=== PATIENT | male | born 1975 | race Caucasian/White ===

== ENCOUNTER 2018-11-17 17:01 | Emergency (ER) | payer MEDICAID, OTHER ==
[~2018-11-17] VITALS: Wt 82.1 kg
[2018-11-17] MEDS ORDERED: LORAZEPAM 2 MG INJ IV ONE (22:00)
[2018-11-18] MEDS ORDERED: OMEP20CA16 PO (00:07)
--- NOTE | 2018-11-18 01:04 | ERD ---
ER Documentation Chief Complaint Chief Complaint DIZZINESS, PALPITATION X YESTERDAY, L ARM NUMBNESS SINCE 1400 HPI This is a 42-year-old male complains of dizziness and palpitations since yesterday along with bilateral arm numbness and perioral numbness. Denies fevers chills nausea vomiting. He denies any chest pressure but does feel palpitations. He says been under somewhat stressful situations lately secondary to monetary issues. Denies fevers chills nausea vomiting. Denies history of cardiac disease. Denies current family history of cardiac disease. Denies any other current issues. ROS All systems reviewed and are negative except as per history of present illness. Medications Home Meds Reported Medications Omeprazole* (Omeprazole*) 20 Mg Capsule.dr, 20 MG PO DAILY, #30 CAP 11/18/18 Allergies Allergies: Coded Allergies: Penicillins (Unverified Allergy, Severe, RASHES, 11/18/18) PMhx/Soc Medical and Surgical Hx: pt denies Medical Hx, pt denies Surgical Hx Hx Alcohol Use: No Hx Substance Use: No Hx Tobacco Use: No Smoking Status: Never smoker Physical Exam Vitals Vital Signs Date Temp Pulse Resp B/P (MAP) Pulse Ox O2 O2 Flow FiO2 Time Delivery Rate 11/18/18 98.7 61 18 117/80 96 Room Air 00:45 (92) 11/18/18 98.7 63 18 120/77 96 Room Air 00:08 (91) 11/17/18 98.7 60 18 120/74 100 Room Air 23:01 (89) 11/17/18 98.7 58 18 125/72 100 Room Air 22:11 (89) 11/17/18 98.7 75 20 123/73 99 20:50 (90) 11/17/18 98.7 93 20 123/73 99 17:37 (90) Physical Exam Const: No acute distress Head: Atraumatic Eyes: Normal Conjunctiva ENT: Normal External Ears, Nose and Mouth. Neck: Full range of motion. No meningismus. Resp: Clear to auscultation bilaterally Cardio: Regular rate and rhythm, no murmurs Abd: Soft, non tender, non distended. Normal bowel sounds Skin: No petechiae or rashes Back: No midline or flank tenderness Ext: No cyanosis, or edema Neur: Awake and alert Psych: Normal Mood and Affect Result Diagram: 11/17/18209911/17/182099 Results 24 hrs Laboratory Tests Test 11/17/18 21:00 White Blood Count 11.0 10^3/ul Red Blood Count 5.38 10^6/ul Hemoglobin 15.2 g/dl Hematocrit 46.5 % Mean Corpuscular Volume 86.4 fl Mean Corpuscular Hemoglobin 28.3 pg Mean Corpuscular Hemoglobin Concent 32.7 g/dl Red Cell Distribution Width 12.7 % Platelet Count 289 10^3/UL Mean Platelet Volume 10.4 fl Immature Granulocytes % 0.500 % Neutrophils % 52.9 % Lymphocytes % 38.1 % Monocytes % 6.8 % Eosinophils % 1.3 % Basophils % 0.4 % Nucleated Red Blood Cells % 0.0 /100WBC Immature Granulocytes # 0.050 10^3/ul Neutrophils # 5.8 10^3/ul Lymphocytes # 4.2 10^3/ul Monocytes # 0.7 10^3/ul Eosinophils # 0.1 10^3/ul Basophils # 0.0 10^3/ul Nucleated Red Blood Cells # 0.0 10^3/ul Prothrombin Time 12.6 Sec Prothrombin Time Ratio 1.0 INR International Normalized Ratio 0.93 Activated Partial Thromboplast Time 30.7 Sec Sodium Level 142 mmol/L Potassium Level 3.7 mmol/L Chloride Level 103 mmol/L Carbon Dioxide Level 27 mmol/L Anion Gap 12 Blood Urea Nitrogen 13 mg/dl Creatinine 0.86 mg/dl Est Glomerular Filtrat Rate mL/min > 60 mL/min Glucose Level 93 mg/dl Calcium Level 9.4 mg/dl Total Bilirubin 0.2 mg/dl Direct Bilirubin 0.00 mg/dl Indirect Bilirubin 0.2 mg/dl Aspartate Amino Transf (AST/SGOT) 31 IU/L Alanine Aminotransferase (ALT/SGPT) 25 IU/L Alkaline Phosphatase 72 IU/L Troponin I < 0.012 ng/ml B-Type Natriuretic Peptide 12 PG/ML Total Protein 8.6 g/dl Albumin 5.0 g/dl Globulin 3.60 g/dl Albumin/Globulin Ratio 1.38 Thyroid Stimulating Hormone (TSH) 3.050 MIU/L Free Thyroxine Index 3.36 ug/ml Thyroxine (T4) 10.8 ug/dl Triiodothyronine (T3) Uptake 31.1 % Current Medications Medications Dose Sig/Nik Start Time Status Last (Trade) Ordered Route PRN Stop Time Admin Dose Reason Admin Lorazepam 1 mg ONCE ONCE 11/17/18 DC 11/17/18 (Ativan) IV 22:00 22:06 11/17/18 22:01 Procedures/MDM Emergency department course: Patient seen and evaluated by triage nurse. Placed in bed for MD evaluation. Intravenous access established. Placed on cardiac monitors. Had a stat EKG. Given 1 mg Ativan intravenously. Serial examinations remained stable in the department EKG: Rate/Rhythm: [Normal Sinus Rhythm] QRS, ST, T-waves: [No changes consistent w/ acute ischemia] Impression: [No evidence of ischemia or arrhythmia] Chest X-ray 1V Interpreted by me: Soft Tissue: No acute abnormalities Bones: No acute abnormalities Mediastinum/Cardiac Silhouette/Lungs: [No acute abnormalities] Medical decision making: Patient's thoracic symptoms have stabilized while in the department and are stable for outpatient follow up. Exam and work up not consistent w/ ischemia, arrhythmia, PE or dissection. Symptomology consistent with generalized anxiety with an acute panic attack. His symptoms completely resolved with administration of Ativan and he feels much better. No evidence of cardiac disease on EKG or blood work. Given his relatively limited risk, I feel the patient is stable for trial of outpatient management but he has been advised to follow with primary care physician for possible outpatient cardiology follow-up patient has been instructed to return via 911 for any return of palpitations or any occurrence of chest pain whatsoever Departure Diagnosis: Primary Impression: Panic attack Additional Impression: Palpitations Condition: Stable DOMENICO ADEN Nov 18, 2018 01:04
[2018-11-18] MEDS ORDERED: LORA-441 PO (01:05)
[2018-11-18 01:16] VITALS: BP 116/64; PULSE 62; RESP 19
== END 2018-11-18 01:36 | disposition home or self-care (01) ==
LOC: E/R 17:01
DX: F41.0 Panic disorder [episodic paroxysmal anxiety] (principal); R00.2 Palpitations; R07.9 Chest pain, unspecified
CPT/HCPCS: 36415; 71045; 76705; 80053; 83880; 84436; 84443; 84479; 84484; 85025; 85610; 85730; 93005; 96374; J2060; Z7502